=== PATIENT | male | born 1970 | race Asian ===

== ENCOUNTER 2019-09-15 13:00 | Outpatient (CLI) | payer MEDICAID ==
[2019-09-15 17:51] LABS: BASOPHILS % (AUTO) 0.6 %; EOSINOPHILS # (AUTO) 0.2 10^3/uL (0.0-0.7); HGB - HEMOGLOBIN 15.7 g/dL (14.0-18.0); LYMPHOCYTES # (AUTO) 2.3 10^3/uL (1.5-3.5); LYMPHOCYTES % (AUTO) 33.6 %; MEAN CORPUSCULAR HEMOGLOBIN 30.3 pg (27.0-31.0); MEAN CORPUSCULAR HGB CONC 33.6 g/dL (32.0-36.0); MEAN PLATELET VOLUME 11.2 fL (7.4-11.4); MONOCYTES # (AUTO) 0.4 10^3/uL (0.0-1.0); MONOCYTES % (AUTO) 6.4 %; NEUTROPHILS # (AUTO) 3.8 10^3/uL (1.5-6.6); NEUTROPHILS % (AUTO) 55.8 %; PLT - PLATELET COUNT 219 10^3/uL (130-450); RED BLOOD COUNT 5.19 10^6/uL (4.70-6.10); RED CELL DISTRIBUTION WIDTH 13.5 % (12.0-15.0); WHITE BLOOD COUNT 6.7 x10^3/uL (4.8-10.8)
[2019-09-15 18:10] LABS: HB2 TOTAL 16.6 g/dL; HEMOGLOBIN A1C 1.7 g/dL; HEMOGLOBIN A1C % 11.5 % (4.6-6.2)
[2019-09-15 18:11] LABS: ALBUMIN 4.4 g/dL (3.2-5.5); ALBUMIN/GLOBULIN RATIO 1.3 (1.0-2.2); ALKALINE PHOSPHATASE 80 IU/L (42-121); ALT ALANINE AMINOTRANSFERASE 25 IU/L (10-60); AST ASPARTATE AMINOTRANSFERASE 20 IU/L (10-42); BILIRUBIN,TOTAL 0.6 mg/dL (0.2-1.0); BUN - BLOOD UREA NITROGEN 15 mg/dL (6-20); CALCIUM 9.3 mg/dL (8.5-10.3); CARBON DIOXIDE - CO2 26 mmol/L (21-32); CHLORIDE 99 mmol/L (101-111); CHOL/HDL RATIO 15.1 (<5.0); CHOLESTEROL 468 mg/dL; CREATININE 0.9 mg/dL (0.6-1.2); GLUCOSE 256 mg/dL (70-100); HDL CHOLESTEROL 31 mg/dL; SODIUM 135 mmol/L (135-145); TOTAL PROTEIN 7.7 g/dL (6.7-8.2)
[2019-09-15 18:43] LABS: LDL CHOLESTEROL,DIRECT 113 mg/dL; LDLD/HDL RATIO 3.6 (<3.6)
== END 2019-09-15 23:59 | disposition home or self-care (01) ==
LOC: LAB.WCP 13:00
PROVIDERS: ATTEND Family Medicine
DX: Z00.00 Encounter for general adult medical examination without abnormal findings (principal)
CPT/HCPCS: 36415; 80053; 80061; 83036; 83721; 84443; 85025

== ENCOUNTER 2019-12-28 13:38 | Outpatient (CLI) | payer MEDICAID ==
--- NOTE | 2019-12-28 15:05 | XRAY Report ---
PROCEDURE: Ankle 3 View LT INDICATIONS: ANKLE JOINT Pain, left TECHNIQUE: 3 views of the ankle were acquired. COMPARISON: None FINDINGS: Bones: No fractures or dislocations. Ankle mortise is normally aligned. No suspicious bony lesions . Soft tissues: No tibiotalar joint effusion. Achilles tendon appears normal. IMPRESSION: No acute finding or significant degenerative changes. Reviewed by: Zane Bledsoe MD on 12/28/2019 3:04 PM PDT Approved by: Zane Bledsoe MD on 12/28/2019 3:04 PM PDT Station ID: [id number]
== END 2019-12-28 13:39 | disposition home or self-care (01) ==
LOC: DI 13:38
PROVIDERS: ATTEND Family Medicine
DX: M25.572 Pain in left ankle and joints of left foot (principal)

== ENCOUNTER 2020-02-13 15:55 | Outpatient (CLI) | payer MEDICAID ==
[2020-02-13 19:01] LABS: CALCIUM 9.9 mg/dL (8.5-10.3); CREATININE 0.9 mg/dL (0.6-1.2)
[2020-02-13 19:12] LABS: CREATININE,URINE 79.3 mg/dL; MICROALBUM/CREATININE RATIO,UR 3.8 ug/mg (<30.0); MICROALBUMIN,URINE 0.3 mg/dL (0-300.0)
[2020-02-13 20:34] LABS: HEMOGLOBIN A1c% 6.1 % (4.27-6.07)
== END 2020-02-13 23:59 | disposition home or self-care (01) ==
LOC: LAB.WCP 15:55
PROVIDERS: ATTEND Family Medicine
DX: E11.9 Type 2 diabetes mellitus without complications (principal)
CPT/HCPCS: 36415; 80048; 82043; 82570; 83036

== ENCOUNTER 2020-04-27 07:00 | Outpatient (CLI) | payer MEDICAID ==
--- NOTE | 2020-04-27 16:23 | XRAY Report ---
PROCEDURE: Foot 3 View LT INDICATIONS: LEFT 5TH DIGIT PAIN TECHNIQUE: 3 views of the foot were acquired. COMPARISON: Left ankle radiographs 12/28/2019. FINDINGS: Bones: Mildly displaced fracture of the fifth digit distal phalanx. There appears to be osseous erosi on of the tuft of the fifth digit. No dislocations. No suspicious bony lesions. Soft tissues: No tibiotalar joint effusion. Achilles tendon appears normal. IMPRESSION: Mildly displaced fracture of the fifth digit distal phalanx. Suspect erosion at the tuft of the digit. Findings raise the possibility of superimposed osteomyeliti s. -3 phase bone scan may be helpful for further evaluation. Reviewed by: Imtiaz López MD on 04/27/2020 3:22 PM [facility] Approved by: Imtiaz López MD on 04/27/2020 3:22 PM [facility] Station ID: [id number]
== END 2020-04-27 23:59 | disposition home or self-care (01) ==
LOC: DI.N 07:00
PROVIDERS: ATTEND Family Medicine
DX: S92.532A Displaced fracture of distal phalanx of left lesser toe(s), initial encounter for closed fracture (principal)

== ENCOUNTER 2020-05-06 08:34 | Outpatient (CLI) | payer MEDICAID ==
--- NOTE | 2020-05-06 17:52 | Nuclear Medicine Report ---
PROCEDURE: Bone 3-Phase INDICATIONS: DISPLACED FRACTURE OF DISTAL PHALANX, LT CELLULITI RADIOPHARMACEUTICAL: 23.30 mCi Tc-99m MDP IV. TECHNIQUE: Multiple bone scintigrams were obtained after intravenous injection of Tc-99m MDP, including flow, bl ood pool, and delayed images centered to the region of interest. COMPARISON: None. FINDINGS: Intermediate blood flow images demonstrate increased radiotracer activity in the left fifth toe. Inte rmediate blood pool images demonstrate increased radiotracer activity in the left fifth toe. Delayed images demonstrate increased radiotracer uptake in the fifth distal, middle and proximal phalanges. IMPRESSION: Findings compatible with osteomyelitis involving the fifth proximal, middle and distal phalanges. Reviewed by: Cynthia Rushing MD, PhD on 05/06/2020 5:51 PM PST Approved by: Cynthia Rushing MD, PhD on 05/06/2020 5:51 PM PST Station ID: [id number]
== END 2020-05-06 08:35 | disposition home or self-care (01) ==
LOC: DI 08:34
PROVIDERS: ATTEND Family Medicine
DX: S92.532A Displaced fracture of distal phalanx of left lesser toe(s), initial encounter for closed fracture (principal); L03.032 Cellulitis of left toe; M86.8X7 Other osteomyelitis, ankle and foot
CPT/HCPCS: 78315

== ENCOUNTER 2020-05-14 10:11 | Outpatient (CLI) | payer MEDICAID ==
[2020-05-14 13:08] LABS: BASOPHILS % (AUTO) 0.6 %; EOSINOPHILS # (AUTO) 0.3 10^3/uL (0.0-0.7); HCT - HEMATOCRIT 44.6 % (42.0-52.0); HGB - HEMOGLOBIN 15.6 g/dL (14.0-18.0); LYMPHOCYTES # (AUTO) 2.3 10^3/uL (1.5-3.5); LYMPHOCYTES % (AUTO) 34.6 %; MEAN CORPUSCULAR HEMOGLOBIN 32.6 pg (27.0-31.0); MEAN CORPUSCULAR VOLUME 93.1 fL (80.0-94.0); MEAN PLATELET VOLUME 10.7 fL (7.4-11.4); MONOCYTES # (AUTO) 0.3 10^3/uL (0.0-1.0); MONOCYTES % (AUTO) 4.9 %; NEUTROPHILS # (AUTO) 3.7 10^3/uL (1.5-6.6); NEUTROPHILS % (AUTO) 55.6 %; PLT - PLATELET COUNT 246 10^3/uL (130-450); RED BLOOD COUNT 4.79 10^6/uL (4.70-6.10); RED CELL DISTRIBUTION WIDTH 13.7 % (12.0-15.0); WHITE BLOOD COUNT 6.7 x10^3/uL (4.8-10.8)
[2020-05-14 13:43] LABS: ESTIMATED AVERAGE GLUCOSE 131 mg/dL (70-100); HEMOGLOBIN A1c% 6.2 % (4.27-6.07)
[2020-05-14 14:14] LABS: CALCIUM 9.5 mg/dL (8.5-10.3); POTASSIUM 4.3 mmol/L (3.5-5.0)
== END 2020-05-14 23:59 | disposition home or self-care (01) ==
LOC: LAB.WCP 10:11
PROVIDERS: ATTEND Family Medicine
DX: M86.179 Other acute osteomyelitis, unspecified ankle and foot (principal); E11.9 Type 2 diabetes mellitus without complications; F31.81 Bipolar II disorder
CPT/HCPCS: 36415; 80048; 82043; 82570; 83036; 85025

== ENCOUNTER 2020-05-14 23:30 | Outpatient (CLI) | payer MEDICAID ==
[2020-05-14 18:21] LABS: CREATININE,URINE 150.3 mg/dL; MICROALBUM/CREATININE RATIO,UR 2.7 ug/mg (<30.0); MICROALBUMIN,URINE 0.4 mg/dL (0-300.0)
== END 2020-05-14 23:59 | disposition home or self-care (01) ==
LOC: LAB.R 23:30
PROVIDERS: ATTEND Family Medicine
DX: M86.179 Other acute osteomyelitis, unspecified ankle and foot (principal); E11.9 Type 2 diabetes mellitus without complications; F31.81 Bipolar II disorder
CPT/HCPCS: 82043; 82570

== ENCOUNTER 2020-06-06 08:00 | Outpatient (CLI) | payer MEDICAID ==
--- NOTE | 2020-06-06 17:57 | XRAY Report ---
PROCEDURE: Toe(s) LT INDICATIONS: LEFT 5TH DIGIT PAIN TECHNIQUE: 3 views of the left fifth toe(s) acquired. COMPARISON: 04/27/2020 FINDINGS: Bones: Fracture of the fifth distal phalange is stable in appearance compared to prior examination. E rosive change involving the tuft of the fifth distal phalange is stable. Soft tissues: No suspicious soft tissue densities. Fifth toe soft tissue swelling. IMPRESSION: 1. Fifth distal phalange fracture. 2. Erosive change involving the tuft of the fifth distal phalange stable compared to prior examinatio n. Finding remains could reflect posttraumatic osteolysis, osteomyelitis or inflammatory arthritis. Reviewed by: Cynthia Rushing MD, PhD on 06/06/2020 4:56 PM [place] Approved by: Cynthia Rushing MD, PhD on 06/06/2020 4:56 PM [place] Station ID: [id number]
== END 2020-06-06 23:59 | disposition home or self-care (01) ==
LOC: DI.N 08:00
PROVIDERS: ATTEND Orthopaedic Surgery
DX: S92.532A Displaced fracture of distal phalanx of left lesser toe(s), initial encounter for closed fracture (principal)

== ENCOUNTER 2020-06-27 08:00 | Outpatient (CLI) | payer MEDICAID ==
[2020-06-27 18:18] LABS: BASOPHILS % (AUTO) 0.6 %; EOSINOPHILS # (AUTO) 0.3 10^3/uL (0.0-0.7); HGB - HEMOGLOBIN 15.1 g/dL (14.0-18.0); LYMPHOCYTES # (AUTO) 1.8 10^3/uL (1.5-3.5); LYMPHOCYTES % (AUTO) 28.2 %; MEAN CORPUSCULAR HEMOGLOBIN 31.9 pg (27.0-31.0); MEAN CORPUSCULAR HGB CONC 33.9 g/dL (32.0-36.0); MEAN CORPUSCULAR VOLUME 93.9 fL (80.0-94.0); MEAN PLATELET VOLUME 11.1 fL (7.4-11.4); MONOCYTES # (AUTO) 0.4 10^3/uL (0.0-1.0); NEUTROPHILS # (AUTO) 3.9 10^3/uL (1.5-6.6); PLT - PLATELET COUNT 228 10^3/uL (130-450); RED BLOOD COUNT 4.74 10^6/uL (4.70-6.10); RED CELL DISTRIBUTION WIDTH 13.3 % (12.0-15.0); WHITE BLOOD COUNT 6.5 x10^3/uL (4.8-10.8)
[2020-06-27 18:35] LABS: ALBUMIN 4.4 g/dL (3.2-5.5); ALBUMIN/GLOBULIN RATIO 1.3 (1.0-2.2); BILIRUBIN,TOTAL 0.7 mg/dL (0.2-1.0); CALCIUM 9.3 mg/dL (8.5-10.3); CREATININE 1.1 mg/dL (0.6-1.2); TOTAL PROTEIN 7.8 g/dL (6.7-8.2)
[2020-06-27 19:47] LABS: HEMOGLOBIN A1c% 5.9 % (4.27-6.07)
== END 2020-06-27 23:59 | disposition home or self-care (01) ==
LOC: LAB.N 08:00
PROVIDERS: ATTEND Physician Assistant Medical
DX: E11.42 Type 2 diabetes mellitus with diabetic polyneuropathy (principal); Z20.822 Contact with and (suspected) exposure to COVID-19
CPT/HCPCS: 36415; 80053; 82306; 82607; 83036; 83921; 84443; 85025

== ENCOUNTER 2020-07-25 16:04 | Outpatient (CLI) | payer MEDICAID ==
--- NOTE | 2020-07-25 16:11 | XRAY Report ---
PROCEDURE: Foot 3 View LT INDICATIONS: LEFT FOOT TECHNIQUE: 3 views of the foot were acquired. COMPARISON: None FINDINGS: Bones: No fractures or dislocations. No suspicious bony lesions. Mild periarticular osteophyte for mation at the tibiotalar, talonavicular, and first metatarsophalangeal joints, indicating osteoarthri tis. Soft tissues: No tibiotalar joint effusion. Achilles tendon appears normal. IMPRESSION: Osteoarthritis. No acute fracture. No osseous lesion. If symptoms and/or clinical suspicion for patho logy continue, further assessment with repeat plain films, or advanced imaging (e.g., CT, MRI, or bon e scan) is recommended for further assessment. Reviewed by: Nina Parks MD on 07/25/2020 4:10 PM PST Approved by: Nina Parks MD on 07/25/2020 4:10 PM PST Station ID: [id number]
== END 2020-07-25 23:59 | disposition home or self-care (01) ==
LOC: DI.N 16:04
PROVIDERS: ATTEND Orthopaedic Surgery
DX: M86.179 Other acute osteomyelitis, unspecified ankle and foot (principal); M19.072 Primary osteoarthritis, left ankle and foot

== ENCOUNTER 2020-10-30 10:27 | Outpatient (CLI) | payer MEDICAID ==
--- NOTE | 2020-10-30 14:53 | XRAY Report ---
PROCEDURE: Toe(s) LT INDICATIONS: L 5TH TOE PX TECHNIQUE: 3 views of the . toe(s) acquired. COMPARISON: X-ray toes 06/06/2020 FINDINGS: Bones: No fractures or dislocations. No suspicious bony lesions. In the interval since the prior e xam, there has been resection with minimal residual osseous fragment of the middle and distal fifth p halanxes. There is a slight appearance of lucency along the medial aspect of the distal medial proxim al phalanx. Soft tissues: No suspicious soft tissue densities. IMPRESSION: 1. Postoperative changes as above. 2. Small periarticular lucency at the distal aspect of the fifth proximal phalanx. This is new since prior exam erosion secondary to osteomyelitis cannot be excluded. Reviewed by: Ania Tellez MD on 10/30/2020 2:52 PM PDT Approved by: Ania Tellez MD on 10/30/2020 2:52 PM PDT Station ID: [id number]
== END 2020-10-30 10:28 | disposition home or self-care (01) ==
LOC: DI.N 10:27
PROVIDERS: ATTEND Family Medicine
DX: M79.675 Pain in left toe(s) (principal)

== ENCOUNTER 2020-11-05 08:00 | Outpatient (CLI) | payer MEDICAID | END 2020-11-05 23:59 | disposition home or self-care (01) | LOC: LAB.N 08:00 | PROVIDERS: ATTEND Orthopaedic Surgery | DX: M86.172 Other acute osteomyelitis, left ankle and foot (principal) | CPT/HCPCS: 87070; 87205 ==

== ENCOUNTER 2021-01-06 09:59 | Outpatient (CLI) | payer MEDICAID ==
[2021-01-06 12:25] LABS: ALBUMIN 4.6 g/dL (3.2-5.5); ALBUMIN/GLOBULIN RATIO 1.3 (1.0-2.2); ALKALINE PHOSPHATASE 70 IU/L (42-121); ALT ALANINE AMINOTRANSFERASE 44 IU/L (10-60); AST ASPARTATE AMINOTRANSFERASE 38 IU/L (10-42); BILIRUBIN,TOTAL 0.9 mg/dL (0.2-1.0); BUN - BLOOD UREA NITROGEN 17 mg/dL (6-20); CALCIUM 9.8 mg/dL (8.5-10.3); CARBON DIOXIDE - CO2 26 mmol/L (21-32); CHLORIDE 106 mmol/L (101-111); CHOL/HDL RATIO 9.9 (<5.0); CHOLESTEROL 378 mg/dL; GFR - MDRD 78 (>89); GLUCOSE 143 mg/dL (70-100); HDL CHOLESTEROL 38 mg/dL; POTASSIUM 4.4 mmol/L (3.5-5.0); SODIUM 141 mmol/L (135-145); TOTAL PROTEIN 8.1 g/dL (6.7-8.2); TRIGLYCERIDES 633 mg/dL
[2021-01-06 12:29] LABS: CREATININE,URINE 229.3 mg/dL; MICROALBUM/CREATININE RATIO,UR 3.1 ug/mg (<30.0); MICROALBUMIN,URINE 0.7 mg/dL (0-300.0)
[2021-01-06 12:51] LABS: LDL CHOLESTEROL,DIRECT 81 mg/dL; LDLD/HDL RATIO 2.1 (<3.6)
[2021-01-06 13:34] LABS: ESTIMATED AVERAGE GLUCOSE 143 mg/dL (70-100); HEMOGLOBIN A1c% 6.6 % (4.27-6.07)
== END 2021-01-06 23:59 | disposition home or self-care (01) ==
LOC: LAB.WCP 09:59
PROVIDERS: ATTEND Family Medicine
DX: R00.0 Tachycardia, unspecified (principal); E11.9 Type 2 diabetes mellitus without complications; E78.5 Hyperlipidemia, unspecified; F31.81 Bipolar II disorder
CPT/HCPCS: 36415; 80053; 80061; 82043; 82570; 83036; 83721

== ENCOUNTER 2021-06-09 08:00 | Outpatient (CLI) | payer MEDICAID ==
--- NOTE | 2021-06-09 11:12 | XRAY Report ---
PROCEDURE: Elbow 3 View RT INDICATIONS: OTHER SPRAIN OF RIGHT ELBOW TECHNIQUE: 3 views of the elbow were acquired. COMPARISON: None FINDINGS: Bones: No fractures or dislocations. No suspicious bony lesions. Soft tissues: No elbow joint effusion. No suspicious soft tissue calcifications. IMPRESSION: No gross acute elbow fracture or dislocation. No significant joint effusion. Reviewed by: Shawn Morales MD on 06/09/2021 11:11 AM [facility] Approved by: Shawn Morales MD on 06/09/2021 11:11 AM PST Station ID: [id number]
== END 2021-06-09 23:59 | disposition home or self-care (01) ==
LOC: DI.N 08:00
PROVIDERS: ATTEND Nurse Practitioner
DX: S53.491A Other sprain of right elbow, initial encounter (principal)

== ENCOUNTER 2021-11-24 08:59 | Outpatient (CLI) | payer MEDICAID ==
[2021-11-24 11:27] LABS: BASOPHILS % (AUTO) 0.5 %; EOSINOPHILS # (AUTO) 0.3 10^3/uL (0.0-0.7); HCT - HEMATOCRIT 43.8 % (42.0-52.0); HGB - HEMOGLOBIN 14.8 g/dL (14.0-18.0); LYMPHOCYTES # (AUTO) 2.2 10^3/uL (1.5-3.5); LYMPHOCYTES % (AUTO) 28.9 %; MEAN CORPUSCULAR HEMOGLOBIN 31.3 pg (27.0-31.0); MEAN CORPUSCULAR HGB CONC 33.8 g/dL (32.0-36.0); MEAN CORPUSCULAR VOLUME 92.6 fL (80.0-94.0); MEAN PLATELET VOLUME 10.3 fL (7.4-11.4); MONOCYTES # (AUTO) 0.5 10^3/uL (0.0-1.0); MONOCYTES % (AUTO) 6.5 %; NEUTROPHILS # (AUTO) 4.5 10^3/uL (1.5-6.6); NEUTROPHILS % (AUTO) 59.6 %; PLT - PLATELET COUNT 286 10^3/uL (130-450); RED BLOOD COUNT 4.73 10^6/uL (4.70-6.10); RED CELL DISTRIBUTION WIDTH 13.1 % (12.0-15.0); WHITE BLOOD COUNT 7.5 x10^3/uL (4.8-10.8)
[2021-11-24 11:56] LABS: ALBUMIN 4.3 g/dL (3.2-5.5); ALBUMIN/GLOBULIN RATIO 1.5 (1.0-2.2); ALKALINE PHOSPHATASE 70 IU/L (42-121); ALT ALANINE AMINOTRANSFERASE 23 IU/L (10-60); AST ASPARTATE AMINOTRANSFERASE 19 IU/L (10-42); BILIRUBIN,TOTAL 0.5 mg/dL (0.2-1.0); BUN - BLOOD UREA NITROGEN 12 mg/dL (6-20); CALCIUM 9.5 mg/dL (8.5-10.3); CARBON DIOXIDE - CO2 27 mmol/L (21-32); CHLORIDE 107 mmol/L (101-111); CHOL/HDL RATIO 4.4 (<5.0); CHOLESTEROL 141 mg/dL; GFR - MDRD 78 (>89); GLUCOSE 137 mg/dL (70-100); HDL CHOLESTEROL 32 mg/dL; LDL CHOLESTEROL,CALCULATED 80 mg/dL; LDL/HDL RATIO 2.5 (<3.6); POTASSIUM 4.2 mmol/L (3.5-5.0); SODIUM 141 mmol/L (135-145); TOTAL PROTEIN 7.2 g/dL (6.7-8.2); TRIGLYCERIDES 144 mg/dL; VLDL CHOLESTEROL 29 mg/dL
[2021-11-24 11:58] LABS: THYROID STIMULATING HORMONE 2.64 uIU/mL (0.34-5.60)
[2021-11-24 12:29] LABS: ESTIMATED AVERAGE GLUCOSE 123 mg/dL (70-100); HEMOGLOBIN A1c% 5.9 % (4.27-6.07)
[2021-11-24 18:06] LABS: BILIRUBIN,URINE NEGATIVE (NEGATIVE); GLUCOSE, URINE (UA) NEGATIVE (NEGATIVE); KETONES,URINE (UA) NEGATIVE (NEGATIVE); LEUKOCYTE ESTERASE, URINE NEGATIVE (NEGATIVE); NITRITE,URINE NEGATIVE (NEGATIVE); OCCULT BLOOD,URINE NEGATIVE (NEGATIVE); PROTEIN,URINE NEGATIVE (NEGATIVE); UROBILINOGEN,URINE 0.2 (NORMAL) E.U./dL (NORMAL)
[2021-11-24 18:38] LABS: BACTERIA,URINE None Seen /HPF (None Seen); CLARITY,URINE CLEAR (CLEAR); RBC,URINE None Seen /HPF (0-5); SQUAMOUS EPITHELIAL CELL,UR RARE Squamous (<= Few); WBC,URINE 0-3 /HPF (0-3)
[2021-11-24 18:46] LABS: CREATININE,URINE 135.7 mg/dL; MICROALBUM/CREATININE RATIO,UR 1.5 ug/mg (<30.0); MICROALBUMIN,URINE 0.2 mg/dL (0-300.0)
== END 2021-11-24 09:00 | disposition home or self-care (01) ==
LOC: LAB.N 08:59
PROVIDERS: ATTEND Family Medicine
DX: E11.42 Type 2 diabetes mellitus with diabetic polyneuropathy (principal); M15.9 Polyosteoarthritis, unspecified; I73.9 Peripheral vascular disease, unspecified; E78.5 Hyperlipidemia, unspecified; F31.81 Bipolar II disorder; R10.32 Left lower quadrant pain
CPT/HCPCS: 36415; 80053; 80061; 81001; 82043; 82570; 83036; 83721; 84443; 85025; 87086